=== PATIENT | male | born 1990 ===

== ENCOUNTER 2017-09-18 17:42 | Emergency (ER) | payer SELFPAY ==
[~2017-09-18 17:42] MED LIST: AZIT-18 PO; HYDR-4309 PO; IBUP800T37 PO; KET10 PO; LOR5/325 PO; PRED20TA6 PO
[2017-09-18 17:50] VITALS: BP 144/80
--- NOTE | 2017-09-18 17:52 | ER Report ---
History and Physical Time Seen By MD: 17:52 HPI/ROS CHIEF COMPLAINT: Right shoulder pain. HISTORY OF PRESENT ILLNESS: A 26-year-old male who presents to the emergency department for right shoulder pain. Patient states about 5 days ago he developed some right shoulder pain seems to be increasing in intensity. 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 Patient has a pinpoint spot that is uncomfortable on the right shoulder near the AC joint. No obvious deformities. Patient denies a, chills, nausea, vomiting, diarrhea, chest pain or shortness breath. REVIEW OF SYSTEMS: Respiratory: No cough, no dyspnea. Cardiovascular: No chest pain, no palpitations. Gastrointestinal: No vomiting, no abdominal pain. Musculoskeletal: As above. Allergies: Coded Allergies: No Known Drug Allergies (Unverified , 09/18/17) Home Meds Active Scripts Ibuprofen (IBUPROFEN) 800 Mg Tablet, 1 TAB PO Q8H, #21 TAB 0 Refills Prov:CHARLEE RAMOS PHARMACY TECH-BC 09/18/17 Discontinued Scripts Prednisone (PREDNISONE) 20 Mg Tablet, 60 MG PO QDAY, #12 TAB 0 Refills Prov:CRISTI HUDSON MD 02/06/17 Hydrocodone Bit/Acetaminophen (HYDROCODON-ACETAMINOPHEN 5-325) 1 Each Tablet, 1 EACH PO Q4H Y for PAIN, #12 TAB 0 Refills Prov:CRISTI HUDSON MD 02/06/17 Ibuprofen (IBUPROFEN) 800 Mg Tablet, 1 TAB PO Q8H Y for PAIN, #30 TAB 0 Refills Prov:CRISTI HUDSON MD 02/05/17 Prednisone (PREDNISONE) 20 Mg Tablet, 20 MG PO BID, #8 TAB Prov:ISMA AYOUBP 01/01/17 Past Medical/Surgical History Patient has no significant past medical or surgical history. Hx Smoking: Yes Smoking Status: Current: Every Day Smoker, Former Smoker Hx Substance Use Disorder: No Hx Alcohol Use: Yes Constitutional Vital Sign - Last 24 Hours 09/18/17 17:50 Temp 98.3 Pulse 95 Resp 14 B/P (MAP) 144/80 Pulse Ox 90 O2 Delivery Room Air Physical Exam General Appearance: The patient is alert, has no immediate need for airway protection and no current signs of toxicity. Eyes: Pupils equal and round no injection. Respiratory: Chest is non tender, lungs are clear to auscultation. Cardiac: regular rate and rhythm. Gastrointestinal: Abdomen is soft and non tender, no masses, bowel sounds normal. Musculoskeletal: Neck: Neck is supple and non tender. Extremities have full range of motion and are mild tenderness to the right before AC joint, no swelling, erythema, crepitus or obvious deformities. CMS intact distal to the injury. Skin: No rashes or lesions. DIFFERENTIAL DIAGNOSIS: After history and physical exam differential diagnosis was considered for before meals separation, dislocation, contusion and overuse syndrome. Medical Decision Making EKG/Imaging Imaging Location: [facility] - [place] Patient: Jorge Wick : 1990 Visit/Account:[id number] Date of Sevice: 09/18/2017 SHOULDER MIN 2 VIEWS RIGHT History: Pain. COMPARISON: none. FINDINGS: 2 views are provided. No evidence of fracture. Joint spaces and alignment within normal limits. Soft tissues are unremarkable. IMPRESSION: Negative study. Report Dictated By: Sylvester Sung MD at 09/18/2017 6:24 PM Report E-Signed By: Sylvester Sung MD at 09/18/2017 6:25 PM WSN:[id number] ED Course/Re-evaluation ED Course The patient was roomed. History and physical were obtained. Differential diagnoses were considered. An x-ray of the right shoulder was negative for any acute findings. I did review these results with the patient and told him this is likely a repetitive use type of injury seiner to his work. I did instruct the patient to try to relax the shoulders much as possible with next several days and take the prescription strength ibuprofen as directed. Patient was also encouraged to follow up with [facility] if there are no improvements in 7-14 days. Patient was in agreement with this plan and care and discharged home. Decision to Disposition Date: Sep 18, 2017 Decision to Disposition Time: 18:35 Depart Departure Latest Vital Signs Vital Signs Date Time Temp Pulse Resp B/P (MAP) Pulse Ox O2 Delivery O2 Flow Rate FiO2 09/18/17 17:50 98.3 95 14 144/80 90 Room Air Impression: Primary Impression: Right shoulder pain Condition: Improved Disposition: HOME OR SELF-CARE Referrals: [facility] New Scripts Ibuprofen (IBUPROFEN) 800 Mg Tablet 1 TAB PO Q8H, #21 TAB 0 Refills Prov: YESIBREANADEBRACHARLEE BROWN 09/18/17 Patient Instructions: Shoulder Pain (ED) Additional Instructions: Drink plenty of fluids. Get plenty of rest. Take the ibuprofen as directed. Continue with the range of motion exercises you have been doing. If no improvement in the next 7-14 days consider following up with [facility]. Return to the ED for any other concerns or worsening symptoms. Problem Qualifiers Primary Impression: Right shoulder pain Chronicity: acute Qualified Codes: M25.511 - Pain in right shoulder CHARLEE RAMOS-BEATRICE Sep 18, 2017 17:52
[2017-09-18] MEDS ORDERED: IBUPROFEN 800 MG TAB PO ONE (18:00)
--- NOTE | 2017-09-18 18:28 | RADIOLOGY IMAGING REPORT ---
FACILITY: [facility] - [place] PATIENT NAME: Jorge Wick : 1990 MR: [id number] V: [id number] EXAM DATE: ORDERING PHYSICIAN: CHARLEE RAMOS TECHNOLOGIST: Location: [facility] [place] Patient: Jorge Wick : 1990 Visit/Account:[id number] Date of Sevice: 09/18/2017 SHOULDER MIN 2 VIEWS RIGHT History: Pain. COMPARISON: none. FINDINGS: 2 views are provided. No evidence of fracture. Joint spaces and alignment within normal looney its. Soft tissues are unremarkable. IMPRESSION: Negative study. Report Dictated By: Sylvester Sung MD at 09/18/2017 6:24 PM Report E-Signed By: Sylvester Sung MD at 09/18/2017 6:25 PM WSN:[id number]
[2017-09-18] MEDS ORDERED: IBUP800T37 PO (18:36)
== END 2017-09-18 18:44 | disposition home or self-care (01) ==
LOC: ER 18:02
DX: M25.511 Pain in right shoulder (principal)
CPT/HCPCS: 99283

== ENCOUNTER 2018-05-20 08:27 | Emergency (ER) | payer SELFPAY ==
[~2018-05-20 08:27] MED LIST changes: -HYDR-4309 PO; +HYDR-653 PO
[2018-05-20] MEDS ORDERED: NS(*) 0.9% 1000 ML BAG 1,000 ML IV ONE (08:45)
[2018-05-20] MEDS ORDERED: KETOROLAC 30 MG/ML VIAL IVP ONE (08:45)
[2018-05-20] MEDS ORDERED: ONDANSETRON 4 MG/2 ML VIAL IVP ONE (08:45)
--- NOTE | 2018-05-20 08:49 | ER Report ---
History and Physical Time Seen By MD: 08:48 Hx. of Stated Complaint: Pain in left lower groin area started last night during sleep. Denies difficulty urinating or pain with urination HPI/ROS CHIEF COMPLAINT: Left groin pain HISTORY OF PRESENT ILLNESS: Patient is a 27-year-old male with no significant past medical history who presents to the emergency department with complaint of left groin pain that occurred around 3 AM this morning. Patient states he went to bed feeling well and got up to urinate around 3 and felt severe pain as a tearing sensation to the left groin. Coughing makes the pain worse. He does not feel any masses into the groin or testicular area. Patient denies any dysuria or testicular pain. Patient has no prior similar episodes. REVIEW OF SYSTEMS: Respiratory: No cough, no dyspnea. Cardiovascular: No chest pain, no palpitations. Gastrointestinal: No vomiting, no abdominal pain. Musculoskeletal: No back pain. Left Groin pain Allergies: Coded Allergies: No Known Drug Allergies (Unverified , 09/18/17) Home Meds Discontinued Scripts Ibuprofen (IBUPROFEN) 800 Mg Tablet, 1 TAB PO Q8H, #21 TAB 0 Refills Prov:CHARLEE RAMOS Pam PLASTER PATTERN CASTER-BC 09/18/17 Past Medical/Surgical History Denies Hx Smoking: Yes Smoking Status: Current: Every Day Smoker, Former Smoker Hx Substance Use Disorder: No Hx Alcohol Use: Yes Constitutional Vital Sign - Last 24 Hours 05/20/18 08:31 Temp 97.3 Pulse 64 Resp 12 B/P (MAP) 140/87 Pulse Ox 94 O2 Delivery Room Air Physical Exam General Appearance: The patient is alert, has no immediate need for airway protection and no signs of toxicity. Eyes: Pupils equal and round no pallor or injection. ENT, Mouth: Mucous membranes are moist. Respiratory: There are no retractions, lungs are clear to auscultation. Cardiovascular: Regular rate and rhythm. Gastrointestinal: Abdomen is soft, patient reports tenderness to the left lower quadrant and groin area, no masses, bowel sounds normal. Neurological: Awake alert Skin: Warm and dry, no rashes. Musculoskeletal: Neck is supple non tender. Extremities are nontender, nonswollen and have full range of motion. Medical Decision Making Data Points Result Diagram: 05/20/18 0853 05/20/18 0853 Laboratory Hematology Test 05/20/18 08:34 05/20/18 08:53 Urine Color Yellow Urine Clarity Clear Urine pH 6.0 pH (4.8-9.5) Urine Specific Jessie 1.016 Urine Protein Negative mg/dL (NEGATIVE) Urine Glucose (UA) Negative mg/dL (NEGATIVE) Urine Ketones Negative mg/dL (NEGATIVE) Urine Blood Negative (NEGATIVE) Urine Nitrite Negative (NEGATIVE) Urine Bilirubin Negative (NEGATIVE) Urine Urobilinogen Negative mg/dL (0.2-1.9) Urine Leukocyte Esterase Negative (NEGATIVE) Urine RBC <1 /HPF (0-2/HPF) Urine WBC 1 /HPF (0-5/HPF) Urine Squamous Epithelial Cells Few /LPF (</=FEW) Urine Bacteria Negative /HPF (NONE-FEW) Urine Mucus None /HPF (NONE-FEW) Red Blood Count 5.37 M/uL (4.00-5.60) Mean Corpuscular Volume 94.8 fL (80.0-96.0) Mean Corpuscular Hemoglobin 32.5 pg (26.0-33.0) Mean Corpuscular Hemoglobin Concent 34.3 g/dL (32.0-36.0) Red Cell Distribution Width 12.6 % (11.5-14.5) Mean Platelet Volume 9.7 fL (7.2-11.1) Neutrophils (%) (Auto) 56.6 % (39.4-72.5) Lymphocytes (%) (Auto) 33.0 % (17.6-49.6) Monocytes (%) (Auto) 7.1 % (4.1-12.4) Eosinophils (%) (Auto) 1.9 % (0.4-6.7) Basophils (%) (Auto) 1.4 % (0.3-1.4) Nucleated RBC Relative Count (auto) 0.0 /100WBC Neutrophils # (Auto) 4.1 K/uL (2.0-7.4) Lymphocytes # (Auto) 2.4 K/uL (1.3-3.6) Monocytes # (Auto) 0.5 K/uL (0.3-1.0) Eosinophils # (Auto) 0.1 K/uL (0.0-0.5) Basophils # (Auto) 0.1 K/uL (0.0-0.1) Nucleated RBC Absolute Count (auto) 0.00 K/uL Sodium Level 140 mmol/L (137-145) Potassium Level 3.9 mmol/L (3.5-5.0) Chloride Level 105 mmol/L (98-107) Carbon Dioxide Level 25 mmol/L (22-30) Blood Urea Nitrogen 11 mg/dl (9-21) Creatinine 0.90 mg/dl (0.66-1.25) Glomerular Filtration Rate Calc > 60.0 Random Glucose 132 mg/dl (75-110) Calcium Level 9.1 mg/dl (8.4-10.2) Total Bilirubin 0.7 mg/dl (0.2-1.3) Aspartate Amino Transf (AST/SGOT) 43 U/L (0-35) Alanine Aminotransferase (ALT/SGPT) 88 U/L (0-56) Alkaline Phosphatase 108 U/L (0-126) Total Protein 7.9 g/dl (6.3-8.2) Albumin 4.2 g/dl (3.5-5.0) Chemistry Test 05/20/18 08:34 05/20/18 08:53 Urine Color Yellow Urine Clarity Clear Urine pH 6.0 pH (4.8-9.5) Urine Specific Jessie 1.016 Urine Protein Negative mg/dL (NEGATIVE) Urine Glucose (UA) Negative mg/dL (NEGATIVE) Urine Ketones Negative mg/dL (NEGATIVE) Urine Blood Negative (NEGATIVE) Urine Nitrite Negative (NEGATIVE) Urine Bilirubin Negative (NEGATIVE) Urine Urobilinogen Negative mg/dL (0.2-1.9) Urine Leukocyte Esterase Negative (NEGATIVE) Urine RBC <1 /HPF (0-2/HPF) Urine WBC 1 /HPF (0-5/HPF) Urine Squamous Epithelial Cells Few /LPF (</=FEW) Urine Bacteria Negative /HPF (NONE-FEW) Urine Mucus None /HPF (NONE-FEW) White Blood Count 7.3 k/uL (4.5-11.0) Red Blood Count 5.37 M/uL (4.00-5.60) Hemoglobin 17.4 g/dL (14.0-18.0) Hematocrit 50.9 % (42.0-52.0) Mean Corpuscular Volume 94.8 fL (80.0-96.0) Mean Corpuscular Hemoglobin 32.5 pg (26.0-33.0) Mean Corpuscular Hemoglobin Concent 34.3 g/dL (32.0-36.0) Red Cell Distribution Width 12.6 % (11.5-14.5) Platelet Count 182 K/uL (150-450) Mean Platelet Volume 9.7 fL (7.2-11.1) Neutrophils (%) (Auto) 56.6 % (39.4-72.5) Lymphocytes (%) (Auto) 33.0 % (17.6-49.6) Monocytes (%) (Auto) 7.1 % (4.1-12.4) Eosinophils (%) (Auto) 1.9 % (0.4-6.7) Basophils (%) (Auto) 1.4 % (0.3-1.4) Nucleated RBC Relative Count (auto) 0.0 /100WBC Neutrophils # (Auto) 4.1 K/uL (2.0-7.4) Lymphocytes # (Auto) 2.4 K/uL (1.3-3.6) Monocytes # (Auto) 0.5 K/uL (0.3-1.0) Eosinophils # (Auto) 0.1 K/uL (0.0-0.5) Basophils # (Auto) 0.1 K/uL (0.0-0.1) Nucleated RBC Absolute Count (auto) 0.00 K/uL Glomerular Filtration Rate Calc > 60.0 Calcium Level 9.1 mg/dl (8.4-10.2) Total Bilirubin 0.7 mg/dl (0.2-1.3) Aspartate Amino Transf (AST/SGOT) 43 U/L (0-35) Alanine Aminotransferase (ALT/SGPT) 88 U/L (0-56) Alkaline Phosphatase 108 U/L (0-126) Total Protein 7.9 g/dl (6.3-8.2) Albumin 4.2 g/dl (3.5-5.0) Urinalysis Test 05/20/18 08:34 Urine Color Yellow Urine Clarity Clear Urine pH 6.0 pH (4.8-9.5) Urine Specific Jessie 1.016 Urine Protein Negative mg/dL (NEGATIVE) Urine Glucose (UA) Negative mg/dL (NEGATIVE) Urine Ketones Negative mg/dL (NEGATIVE) Urine Blood Negative (NEGATIVE) Urine Nitrite Negative (NEGATIVE) Urine Bilirubin Negative (NEGATIVE) Urine Urobilinogen Negative mg/dL (0.2-1.9) Urine Leukocyte Esterase Negative (NEGATIVE) Urine RBC <1 /HPF (0-2/HPF) Urine WBC 1 /HPF (0-5/HPF) Urine Squamous Epithelial Cells Few /LPF (</=FEW) Urine Bacteria Negative /HPF (NONE-FEW) Urine Mucus None /HPF (NONE-FEW) EKG/Imaging Imaging FACILITY: [facility] PATIENT NAME: Jorge Wick : 1990 MR: [id number] V: [id number] EXAM DATE: [id number] ORDERING PHYSICIAN: HUNG JOLLEY TECHNOLOGIST: Location: [facility] - [place] Patient: Jorge Wick : 1990 Visit/Account:[id number] Date of Sevice: 05/20/2018 ABDOMEN/PELVIS W/O CONTRAST HISTORY: llq pain TECHNIQUE: Axial images were obtained through the abdomen and pelvis without intravenous contrast . One of the following dose optimization techniques was utilized in the performance of this exam: automated exposure control; adjustment of the mA and/or kv according to patient size; or use of iterative reconstruction technique. Specific details can be referenced in the facility's radiology CT exam operational policy. CONTRAST: None COMPARISON: None. FINDINGS: Visualized lung bases: Negative. Hepatobiliary: Negative. Spleen: Negative. Adrenals: Negative. Pancreas: Negative. Kidneys/ureters/bladder: No radiopaque urinary tract calculus. No hydronephrosis. Bowel/peritoneum/mesentery: Negative. Vessels: Negative. Lymph nodes: Negative. Pelvic genitourinary: Negative. Bones/body wall: Bilateral spondylolysis at L5. Other findings: None significant IMPRESSION: 1. No acute inflammatory process. Report Dictated By: Rickie Valentin MD at 05/20/2018 9:52 AM Report E-Signed By: Rickie Valentin MD at 05/20/2018 10:12 AM WSN:[id number] ED Course/Re-evaluation ED Course 05/20/2018 8:53:15 am bedside ultrasound negative for hydronephrosis of the left kidney. Plan at this time will be to perform a CT scan of the abdomen and pelvis. We will check CBC CMP urinalysis. We will give IV Toradol for pain. Decision to Disposition Date: May 20, 2018 Decision to Disposition Time: 10:31 Depart Departure Latest Vital Signs Vital Signs Date Time Temp Pulse Resp B/P (MAP) Pulse Ox O2 Delivery O2 Flow Rate FiO2 05/20/18 08:31 97.3 64 12 140/87 94 Room Air Impression: Primary Impression: Groin strain Condition: Improved Disposition: HOME OR SELF-CARE New Scripts Naproxen (NAPROXEN) 375 Mg Tablet 375 MG PO TID for PAIN, #30 TAB 0 Refills Prov: HUNG JOLLEY MD 05/20/18 Departure Forms: ER Transition Record, Medications Reconciliation, Off Work/School Form, School or Work Release?: Work Number of days to be released: 1 Patient Portal Information Patient Instructions: Groin Strain (ED) Problem Qualifiers Primary Impression: Groin strain Encounter type: initial encounter Laterality: left Qualified Codes: S76.212A - Strain of adductor muscle, fascia and tendon of left thigh, initial encounter HUNG JOLLEY MD May 20, 2018 08:49
[2018-05-20 09:05] LABS: PLATELET COUNT, AUTOMATED 182 K/uL (150-450)
--- NOTE | 2018-05-20 10:15 | RADIOLOGY IMAGING REPORT ---
[place] [facility] [place] Jorge Wick : 1990 MR: [id number] V: [id number] EXAM DATE: ORDERING PHYSICIAN: HUNG JOLLEY TECHNOLOGIST: Location: [facility] Patient: Jorge Wick : 1990 Visit/Account:[id number] Date of Sevice: 05/20/2018 ABDOMEN/PELVIS W/O CONTRAST HISTORY: llq pain TECHNIQUE: Axial images were obtained through the abdomen and pelvis without intravenous contrast . One of the following dose optimization techniques was utilized in the performance of this exam: autom ated exposure control; adjustment of the mA and/or kv according to patient size; or use of iterative reconstruction technique. Specific details can be referenced in the facility's radiology CT exam oper ational policy. CONTRAST: None COMPARISON: None. FINDINGS: Visualized lung bases: Negative. Hepatobiliary: Negative. Spleen: Negative. Adrenals: Negative. Pancreas: Negative. Kidneys/ureters/bladder: No radiopaque urinary tract calculus. No hydronephrosis. Bowel/peritoneum/mesentery: Negative. Vessels: Negative. Lymph nodes: Negative. Pelvic genitourinary: Negative. Bones/body wall: Bilateral spondylolysis at L5. Other findings: None significant IMPRESSION: 1. No acute inflammatory process. Report Dictated By: Rickie Valentin MD at 05/20/2018 9:52 AM Report E-Signed By: Rickie Valentin MD at 05/20/2018 10:12 AM WSN:[id number]
[2018-05-20] MEDS ORDERED: NAPR375T44 PO (10:31)
[2018-05-20 10:33] VITALS: BP 123/79
== END 2018-05-20 10:44 | disposition home or self-care (01) ==
LOC: ER 08:40
DX: S76.212A Strain of adductor muscle, fascia and tendon of left thigh, initial encounter (principal)
CPT/HCPCS: 74176; 81001; 85025; 96361; 96374; 96375; 99284; J1885; J2405; J7030; 82040; 82247; 82310; 82374; 82435; 82565; 82947; 84075; 84132; 84155; 84295; 84450; 84460; 84520

== ENCOUNTER 2018-07-29 08:54 | Emergency (ER) | payer SELFPAY ==
[~2018-07-29 08:54] MED LIST changes: +NAPR375T44 PO
--- NOTE | 2018-07-29 09:06 | ER Report ---
History and Physical Time Seen By MD: 09:06 Hx. of Stated Complaint: FEVER CONGESTION COUGH HPI/ROS CHIEF COMPLAINT: cough HISTORY OF PRESENT ILLNESS: This is a 27 year old male. He has runny nose, nasal congestion, cough and body aches. Headache. No sore throat. Had an episode of nausea and vomiting after coughing earlier today. Having fevers and taking Ibuprofen. Multiple sick contacts. Allergies: Coded Allergies: No Known Drug Allergies (Unverified , 07/29/18) Home Meds Active Scripts Oseltamivir Phosphate (TAMIFLU) 75 Mg Cap, 75 MG PO BID, #10 CAP 0 Refills Prov:CRISTI HUDSON MD 07/29/18 Discontinued Scripts Naproxen (NAPROXEN) 375 Mg Tablet, 375 MG PO TID for PAIN, #30 TAB 0 Refills Prov:HUNG JOLLEY MD 05/20/18 Reviewed Nurses Notes: Yes Hx Smoking: Yes Smoking Status: Current: Every Day Smoker, Former Smoker Hx Substance Use Disorder: No Hx Alcohol Use: Yes Constitutional Vital Sign - Last 24 Hours 07/29/18 07/29/18 07/29/18 07/29/18 08:58 09:00 09:00 09:24 Temp 97.9 Pulse 79 83 Resp 14 B/P (MAP) 136/85 (102) 111/80 (90) 111/80 Pulse Ox 95 92 O2 Delivery Room Air 07/29/18 07/29/18 07/29/18 07/29/18 09:29 09:30 09:56 09:59 Pulse 90 77 B/P (MAP) 140/81 (100) 141/73 (95) Pulse Ox 93 90 O2 Delivery Room Air Room Air 07/29/18 07/29/18 07/29/18 07/29/18 10:00 10:05 10:30 10:35 Pulse 80 69 B/P (MAP) 136/72 (93) 130/79 (96) Pulse Ox 91 95 O2 Delivery Room Air Room Air Physical Exam General Appearance: Alert, no acute distress. Eyes: Pupils equal and round no injection. ENT: Normal oral mucosa. Moist mucous membranes. Erythema in posterior oropharynx with clear post-nasal drainage. No exudates or hypertrophy. Nasal mucosa erythema and mucous. Tympanic membranes are normal. Neck: Neck is supple and non tender. Anterior cervical lymphadenopathy. Respiratory: Chest is non tender, lungs are clear to auscultation. Cardiac: regular rate and rhythm Musculoskeletal: Diffuse muscle soreness. Skin: No rashes or lesions. DIFFERENTIAL DIAGNOSIS: After history and physical exam differential diagnosis was considered for patient with cough, congestion suggesting viral upper respiratory infection, likely influenza Medical Decision Making Data Points Laboratory Hematology Test 07/29/18 09:00 Influenza Virus Type A (PCR) Positive (NEGATIVE) Influenza Virus Type B (PCR) Negative (NEGATIVE) Chemistry Test 07/29/18 09:00 Influenza Virus Type A (PCR) Positive (NEGATIVE) Influenza Virus Type B (PCR) Negative (NEGATIVE) ED Course/Re-evaluation ED Course Positive influenza. Started on Tamiflu. Discussed all this with the patient. Note to be off work. Decision to Disposition Date: Jul 29, 2018 Decision to Disposition Time: 10:54 Depart Departure Latest Vital Signs Vital Signs Date Time Temp Pulse Resp B/P (MAP) Pulse Ox O2 Delivery O2 Flow Rate FiO2 07/29/18 10:35 69 95 Room Air 07/29/18 10:30 130/79 (96) 07/29/18 09:00 97.9 14 Impression: Primary Impression: Influenza A Condition: Improved Disposition: HOME OR SELF-CARE New Scripts Oseltamivir Phosphate (TAMIFLU) 75 Mg Cap 75 MG PO BID, #10 CAP 0 Refills Prov: CRISTI HUDSON MD 07/29/18 Patient Instructions: Influenza (ED) Additional Instructions: You have influenza. Rest, increase fluid intake, use Tylenol and ibuprofen as needed for fevers and for aches and pains over the next few days. Start Tamiflu 75 mg twice a day for 5 days. CRISTI HUDSON MD Jul 29, 2018 09:06
[2018-07-29 10:30] VITALS: BP 130/79
[2018-07-29] MEDS ORDERED: OSE75 PO (10:55)
== END 2018-07-29 11:05 | disposition home or self-care (01) ==
LOC: ER 09:20
DX: J11.1 Influenza due to unidentified influenza virus with other respiratory manifestations (principal)
CPT/HCPCS: 87502; 99282